=== PATIENT | female | born 1980 ===

== ENCOUNTER → 2017-07-10 | Day surgery (SDC) | payer OTHER ==
--- NOTE | 2017-07-09 20:03 | History & Physical Pre-Op ---
General Information and HPI History of Present Illness: Patient is a 36-year-old 3 para 4 with history of chronic menorrhagia who has attempted multiple hormonal treatments which have failed and now she desires surgical treatment. Allergies/Medications Allergies: Coded Allergies: MDX - Shellfish (Shellfish) (Intermediate, ANAPHYLAXIS 05/04/13) Past History Medical History History of MRSA: No History of VRE: No History of CDIFF: No Surgical History Pertinent Surgical History: none Review of Systems Review of Systems Constitutional: Reports: no symptoms. EENTM: Reports: no symptoms. Cardiovascular: Reports: no symptoms. Respiratory: Reports: no symptoms. GI: Reports: no symptoms. Genitourinary: Reports: no symptoms. Musculoskeletal: Reports: no symptoms. Skin: Reports: no symptoms. Neurological/Psychological: Reports: no symptoms. Hematologic/Endocrine: Reports: no symptoms. Immunologic/Allergic: Reports: no symptoms. All Other Systems: Reviewed and Negative Exam & Diagnostic Data Last 24 Hrs of Vital Signs/I&O Vital signs stable Physical Exam: HEENT: Normocephalic atraumatic Chest: Clear to auscultation bilaterally Cardiovascular: Normal S1-S2 Abdomen: Soft nontender nondistended Pelvic: Deferred to OR Extremities: No clubbing cyanosis or edema Neurologic: Nonfocal Assessment/Plan Assessment/Plan: Chronic menorrhagia Plan: D&C, hysteroscopy, NovaSure ablation As Ranked By This Provider Problem List: 1. Menorrhagia
[~2017-07-10] VITALS: Ht 162.6 cm; Wt 104.3 kg
--- NOTE | 2017-07-18 20:29 | Operative Report ---
Operative/Inv Procedure Report Surgery Date: 07/10/17 Name of Procedure: D&C hysteroscopy NovaSure ablation Pre-Operative Diagnosis: Menorrhagia Post-Operative Diagnosis: Same Estimated Blood Loss: scant Surgeon/Ore Charger: Willis Null MD Anesthesia: local monitored anesthesi Operative/Procedure Note Note: The patient was brought to the operating room and placed on the OR table in the dorsal supine position. She was given adequate anesthesia and repositioned in modified dorsal lithotomy. She was prepped and draped in the usual sterile fashion. A weighted speculum was inserted into the vagina. The [place] retractor a single-toothed tenaculum was attached to the cervix. The cervix was injected with 1% lidocaine. Endocervical curettage was performed. Cervix was serially dilated to accommodate the hysteroscope which was placed into the fundus no polyps or fibroids were noted. The hysteroscope was removed. The cervix was further dilated and endometrial curettage was performed. At this point the NovaSure was placed into the uterus opened and tested. Puncture ablation lasted for approximately 90 seconds at 100 W of power. At the end of the procedure the instruments were removed patient was awakened and sent to recovery condition. All needle, sponge, and instrument counts were correct.
== END ==
LOC: STS 02:46
DX: N92.0 Excessive and frequent menstruation with regular cycle (principal); J45.909 Unspecified asthma, uncomplicated; G47.33 Obstructive sleep apnea (adult) (pediatric)
CPT/HCPCS: 81025; 88305; J2250